=== PATIENT | male | born 1935 | race Caucasian/White ===

== ENCOUNTER 2017-09-18 12:30 | Emergency (ER) | payer MEDICARE, OTHER ==
[~2017-09-18] VITALS: Ht 182.9 cm; Wt 95.0 kg
[~2017-09-18 12:30] MED LIST: MECL-62 PO
[2017-09-18 12:34] VITALS: BP 136/78; PULSE 76; RESP 16; TEMP 98; O2SAT 95
[2017-09-18] MEDS ORDERED: MECL-62 PO ×2 (12:45→16:11)
[2017-09-18] MEDS ORDERED: SODIUM CHLORIDE 0.9% FLUSH 10 ML FLUSH IVF PRN (13:00)
[2017-09-18] MEDS ORDERED: MECLIZINE HCL 25 MG TAB PO ONE (13:00)
[2017-09-18 13:24] VITALS: BP 141/76; PULSE 65; RESP 18; O2SAT 98
[2017-09-18] MEDS ORDERED: ONDANSETRON HCL 4 MG/2 ML VIAL IV PUSH ONE (13:30)
--- NOTE | 2017-09-18 13:36 | RADRPT ---
EXAM DATE/TIME: 09/18/2017 13:04 [facility] COMPARISON: No previous studies available for comparison. INDICATIONS : Dizziness. RADIATION DOSE: 64.55 CTDIvol (mGy) MEDICAL HISTORY : Arthritis. Vertigo. Skin cancers. Borderline diabetic. SURGICAL HISTORY : None. ENCOUNTER: Initial ACUITY: 2 days PAIN SCALE: 0/10 LOCATION: cranial TECHNIQUE: Multiple contiguous axial images were obtained of the head. Using automated exposure control and adj ustment of the mA and/or kV according to patient size, radiation dose was kept as low as reasonably a chievable to obtain optimal diagnostic quality images. DICOM format image data is available electro nically for review and comparison. FINDINGS: CEREBRUM: The ventricles are normal for age. No evidence of midline shift, mass lesion, hemorrhage or acute in farction. No extra-axial fluid collections are seen. POSTERIOR FOSSA: The cerebellum and brainstem are intact. The 4th ventricle is midline. The cerebellopontine angle i s unremarkable. EXTRACRANIAL: The visualized portion of the orbits is intact. SKULL: The calvaria is intact. No evidence of skull fracture. CONCLUSION: No acute disease. Steven Grider MD on September 18, 2017 at 13:35 Board Certified Radiologist. This report was verified electronically.
--- NOTE | 2017-09-18 13:36 | RADRPT ---
EXAM DATE/TIME: 09/18/2017 13:02 [facility] COMPARISON: No previous studies available for comparison. INDICATIONS : Left side chest pain today & virtigo since last night. MEDICAL HISTORY : Arthritis. Vertigo. Skin Cancers. Borderline diabetic. SURGICAL HISTORY : Left heel spur. ENCOUNTER: Initial ACUITY: 2 days PAIN SCORE: 3/10 LOCATION: Left chest FINDINGS: A single view of the chest demonstrates the lungs to be symmetrically aerated without evidence of mas s, infiltrate or effusion. The cardiomediastinal contours are unremarkable. Osseous structures are intact. CONCLUSION: 1. No acute cardiopulmonary disease. Froylan Nobles MD on September 18, 2017 at 13:35 Board Certified Radiologist. This report was verified electronically.
[2017-09-18 14:04] LABS: AUTOMATED NEUTROPHIL # 6.4 TH/MM3 (1.8-7.7); BASOPHIL % 0.3 % (0.0-2.0); EOSINOPHIL % 0.6 % (0.0-4.0); HEMATOCRIT 41.9 % (39.0-51.0); HEMOGLOBIN 13.9 GM/DL (13.0-17.0); LYMPH % 14.5 % (9.0-44.0); LYMPHOCYTE # 1.2 TH/MM3 (1.0-4.8); MEAN CELL VOLUME 80.8 FL (80.0-100.0); MEAN CORPUSCULAR HEMOGLOBIN 26.8 PG (27.0-34.0); MEAN CORPUSCULAR HGB CONC 33.2 % (32.0-36.0); MEAN PLATELET VOLUME 7.8 FL (7.0-11.0); MONO % 4.4 % (0.0-8.0); MONOCYTE # 0.4 TH/MM3 (0-0.9); NEUT % 80.2 % (16.0-70.0); PLATELET COUNT 153 TH/MM3 (150-450); RED BLOOD COUNT 5.18 MIL/MM3 (4.50-5.90)
[2017-09-18 14:09] LABS: CHLORIDE 107 MEQ/L (98-107); SODIUM (NA) 139 MEQ/L (136-145)
[2017-09-18 14:13] LABS: CALCIUM 10.4 MG/DL (8.5-10.1)
[2017-09-18 14:14] LABS: BICARBONATE 23.6 MEQ/L (21.0-32.0); BLOOD UREA NITROGEN 17 MG/DL (7-18); GLUCOSE,RANDOM 100 MG/DL (74-106); INTERNATIONAL NORMALIZED RATIO 1.1 RATIO; MAGNESIUM 2.2 MG/DL (1.5-2.5); PROTHROMBIN TIME - PATIENT 11.4 SEC (9.8-11.6)
[2017-09-18 14:17] LABS: GLOMERULAR FILTRATION RATE 72 ML/MIN (>89)
[2017-09-18 14:22] LABS: TROPONIN I LESS THAN 0.02 NG/ML (0.02-0.05)
[2017-09-18] MEDS ORDERED: CARBAMIDE PEROXIDE 6.5% OTIC SOLN 15 ML BTL EACH EAR ONE (14:30)
--- NOTE | 2017-09-18 14:49 | PD ---
HPI Chief Complaint: Vertigo Time Seen by Provider: 12:40 Travel History International Travel<30 days: No Contact w/Intl Traveler<30days: No Traveled to known affect area: No History of Present Illness HPI This is an 82-year-old male with a history of recurrent vertigo and cerumen impaction who presents for vertigo. He states that yesterday morning, he rolled over in bed and developed his typical vertigo. It is aggravated by change in position. No associated headache, focal weakness, numbness, tingling , neck pain or stiffness. He does have associated nausea and mostly dry heaves. He has not yet taken any medication for this today. He states that today at one point when he was dry heaving, he had an episode of palpitations. He stated that it felt like his heart was pounding quickly. No actual chest pain. This resolved spontaneously. He has been otherwise well recently without fever, chills, cough, congestion. Symptoms are mild in severity. He states that he sometimes takes [id number] vertigo medication but does not remember the name of it. PFSH Past Medical History Arthritis: Yes (KNEES) Diabetes: No ("BORDERLINE") Diminished Hearing: No Neurologic: Yes (VERTIGO) Integumentary: Yes (SKIN CANCERS) Social History Alcohol Use: Yes (2 BEERS 3X/WEEK) Tobacco Use: No Substance Use: No Allergies-Medications (Allergen,Severity, Reaction): Coded Allergies: No Known Allergies (Verified Adverse Reaction, Unknown, 09/18/17) Reported Meds & Prescriptions Reported Meds & Active Scripts Active Meclizine (Meclizine HCl) 25 Mg Tab 25 Mg PO TID PRN Review of Systems Except as stated in HPI: all other systems reviewed are Neg Physical Exam Narrative GENERAL: Alert, well nourished, well appearing patient resting on the bed in no acute distress. Vital Signs reviewed SKIN: Focused skin assessment warm/dry. HEAD: Atraumatic. Normocephalic. EYES: Pupils equal and round. No scleral icterus. No injection or drainage. ENT: No nasal bleeding or discharge. Mucous membranes pink and moist. Bilateral cerumen impaction. No tenderness over the mastoids. No nystagmus. NECK: Trachea midline. No JVD. Spontaneous, painless full range of motion with no meningismus CARDIOVASCULAR: Regular rate and rhythm. No murmur appreciated. Extremities warm and well perfused with bounding peripheral pulses RESPIRATORY: No accessory muscle use. Clear to auscultation. Breath sounds equal bilaterally. Breathing easily and speaking in full sentences GASTROINTESTINAL: Abdomen soft, non-tender, nondistended. Normal bowel sounds. No rigid, rebound, guarding MUSCULOSKELETAL: No obvious deformities. No clubbing. No cyanosis. No edema. Compartments are soft NEUROLOGICAL: Awake and alert. No obvious cranial nerve deficits. Motor grossly within normal limits. Normal speech. Sensation intact. No pronator drift. Normal finger to nose Data Data Last Documented VS Vital Signs Date Time Temp Pulse Resp B/P (MAP) Pulse Ox O2 Delivery O2 Flow Rate FiO2 09/18/17 14:53 61 18 158/70 (99) 98 Room Air 09/18/17 12:34 98.0 Orders Orders Electrocardiogram (09/18/17 12:49) Basic Metabolic Panel (Bmp) (09/18/17 12:49) Ckmb (Isoenzyme) Profile (09/18/17 12:49) Complete Blood Count With Diff (09/18/17 12:49) Magnesium (Mg) (09/18/17 12:49) Prothrombin Time / Inr (Pt) (09/18/17 12:49) Act Partial Throm Time (Ptt) (09/18/17 12:49) Troponin I (09/18/17 12:49) Chest, Single Ap (09/18/17 12:49) Ecg Monitoring (09/18/17 12:49) Iv Access Insert/Monitor (09/18/17 12:49) Oximetry (09/18/17 12:49) Sodium Chloride 0.9% Flush (Ns Flush) (09/18/17 13:00) Ct Brain W/O Iv Contrast(Rout) (09/18/17 12:49) Meclizine (Antivert) (09/18/17 13:00) Ondansetron Inj (Zofran Inj) (09/18/17 13:30) Carbamide Peroxide 6.5% Otic (Debrox 6.5 (09/18/17 14:30) Ear Irrigation (09/18/17 14:16) Ed Discharge Order (09/18/17 16:12) Labs Laboratory Tests Test 09/18/17 13:15 09/18/17 13:55 Prothrombin Time 11.4 SEC Prothromb Time International Ratio 1.1 RATIO Activated Partial Thromboplast Time 25.0 SEC Blood Urea Nitrogen 17 MG/DL Creatinine 1.00 MG/DL Random Glucose 100 MG/DL Calcium Level 10.4 MG/DL Magnesium Level 2.2 MG/DL Sodium Level 139 MEQ/L Potassium Level 4.2 MEQ/L Chloride Level 107 MEQ/L Carbon Dioxide Level 23.6 MEQ/L Anion Gap 8 MEQ/L Estimat Glomerular Filtration Rate 72 ML/MIN Total Creatine Kinase 36 U/L Troponin I LESS THAN 0.02 NG/ML White Blood Count 8.0 TH/MM3 Red Blood Count 5.18 MIL/MM3 Hemoglobin 13.9 GM/DL Hematocrit 41.9 % Mean Corpuscular Volume 80.8 FL Mean Corpuscular Hemoglobin 26.8 PG Mean Corpuscular Hemoglobin Concent 33.2 % Red Cell Distribution Width 12.0 % Platelet Count 153 TH/MM3 Mean Platelet Volume 7.8 FL Neutrophils (%) (Auto) 80.2 % Lymphocytes (%) (Auto) 14.5 % Monocytes (%) (Auto) 4.4 % Eosinophils (%) (Auto) 0.6 % Basophils (%) (Auto) 0.3 % Neutrophils # (Auto) 6.4 TH/MM3 Lymphocytes # (Auto) 1.2 TH/MM3 Monocytes # (Auto) 0.4 TH/MM3 Eosinophils # (Auto) 0.0 TH/MM3 Basophils # (Auto) 0.0 TH/MM3 CBC Comment DIFF FINAL Differential Comment MDM Medical Decision Making Medical Screen Exam Complete: Yes Emergency Medical Condition: Yes Medical Record Reviewed: Yes Interpretation(s) EKG shows sinus rhythm with a rate of 72. No acute ST elevation. Occasional PVC Laboratory Tests Test 09/18/17 13:15 09/18/17 13:55 Prothrombin Time 11.4 SEC Prothromb Time International Ratio 1.1 RATIO Activated Partial Thromboplast Time 25.0 SEC Blood Urea Nitrogen 17 MG/DL Creatinine 1.00 MG/DL Random Glucose 100 MG/DL Calcium Level 10.4 MG/DL Magnesium Level 2.2 MG/DL Sodium Level 139 MEQ/L Potassium Level 4.2 MEQ/L Chloride Level 107 MEQ/L Carbon Dioxide Level 23.6 MEQ/L Anion Gap 8 MEQ/L Estimat Glomerular Filtration Rate 72 ML/MIN Total Creatine Kinase 36 U/L Troponin I LESS THAN 0.02 NG/ML White Blood Count 8.0 TH/MM3 Red Blood Count 5.18 MIL/MM3 Hemoglobin 13.9 GM/DL Hematocrit 41.9 % Mean Corpuscular Volume 80.8 FL Mean Corpuscular Hemoglobin 26.8 PG Mean Corpuscular Hemoglobin Concent 33.2 % Red Cell Distribution Width 12.0 % Platelet Count 153 TH/MM3 Mean Platelet Volume 7.8 FL Neutrophils (%) (Auto) 80.2 % Lymphocytes (%) (Auto) 14.5 % Monocytes (%) (Auto) 4.4 % Eosinophils (%) (Auto) 0.6 % Basophils (%) (Auto) 0.3 % Neutrophils # (Auto) 6.4 TH/MM3 Lymphocytes # (Auto) 1.2 TH/MM3 Monocytes # (Auto) 0.4 TH/MM3 Eosinophils # (Auto) 0.0 TH/MM3 Basophils # (Auto) 0.0 TH/MM3 CBC Comment DIFF FINAL Differential Comment Last [address] 09/18/17 1249 Signed Impressions: Service Date/Time: Monday, September 18, 2017 13:04 - CONCLUSION: No acute disease. Steven Grider MD Chest X-Ray 09/18/17 1249 Signed Impressions: Service Date/Time: Monday, September 18, 2017 13:02 - CONCLUSION: 1. No acute cardiopulmonary disease. Froylan Nobles MD Differential Diagnosis Vertigo, cerumen impaction, labyrinthitis, BPPV, palpitation, posterior circulation abnormality, CVA, atypical angina less likely Narrative Course Patient was placed on a lunchroom monitor. IV access was established. EKG, chest x-ray, labs were performed. Patient was given meclizine and Zofran with marked improvement in his syncope. His ears were irrigated and I personally curetted cerumen out of his ears. Upon reexamination, patient's TMs and canals are clear. He has had no chest pain in the ED. Upon reevaluation at 4 PM, patient is resting comfortably on the bed in no acute distress. No further vertigo. He has no focal neurological deficits. He states that he has had similar symptoms multiple times in the past. He is stable for discharge with supportive care, meclizine for vertigo and close outpatient follow-up. Patient understands the importance of close outpatient follow-up. He understands he may require further testing and treatment as an outpatient. He understands strict return indications. He is comfortable with this plan and eager to go home. Diagnosis Primary Impression: Vertigo Additional Impression: Bilateral impacted cerumen Referrals: Primary Care Physician 3 days Patient Instructions: Cerumen Impaction (ED), General Instructions, Vertigo (DC ) Additional Instructions: Drink plenty of fluids to stay well hydrated. Take meclizine as needed for vertigo. Follow-up with primary physician in 3 days for recheck. Med/Other Pt SpecificInfo: Prescription(s) given Scripts Meclizine (Meclizine) 25 Mg Tab 25 MG PO TID Y for VERTIGO, #12 TAB 0 Refills Prov: Cammie Chilel MD 09/18/17 Disposition: 01 DISCHARGE HOME Condition: Stable Cammie Chliel MD Sep 18, 2017 14:49
[2017-09-18 14:53] VITALS: BP 158/70; PULSE 61; RESP 18; O2SAT 98
[2017-09-18 16:26] VITALS: BP 163/83
--- NOTE | 2017-09-19 09:59 | EKG ---
Date Performed: 09/18/2017 Time Performed: 12:42:58 PTAGE: 82 years EKG: Sinus rhythm WITH OCCASIONAL VENTRICULAR PREMATURE COMPLEXES MARKED LEFT AXIS DEVIATION ABNORMAL ECG PREVIOUS TRACING : 02/25/2009 09.42 DOCTOR: Hari Arreola Interpretating Date/Time 09/19/2017 09:59:02
== END 2017-09-18 16:30 | disposition home or self-care (01) ==
LOC: PHED 12:30
DX: R42 Dizziness and giddiness (principal); H61.23 Impacted cerumen, bilateral; R94.31 Abnormal electrocardiogram [ECG] [EKG]; R11.0 Nausea
CPT/HCPCS: 69210; 70450; 71045; 80048; 82550; 83735; 84484; 85025; 85610; 85730; 93005; 96374; 99285; J2405